=== PATIENT | female | born 1975 | race Caucasian/White ===

== ENCOUNTER → 2022-06-19 | Outpatient (CLI) | payer OTHER | END | disposition home or self-care (01) | LOC: LAB 17:56 | DX: N39.0 Urinary tract infection, site not specified (principal) ==

== ENCOUNTER → 2023-03-16 | Outpatient (CLI) | payer OTHER ==
[~2023-03-16] MED LIST: ACET325; BUPR150T2; BUSP10; CIME400 PO; CITA10S PO; CYCL10 PO; DIPH50 PO; ESTNORT; FLUO20; HYDACE25S PR; HYDACE5 PO; IBUP800; LORA10ER PO; MELA3 PO; META800 PO; METF500; MULVITMIND; OXYACE5T PO; PHENTRAMINE; PRED10 PO; PRED20 PO; RXCYCL10 PO; SERT100; SPIR25 PO; VITB100
[2023-03-17 15:11] LABS: HPV 16 Negative (Negative); HPV 18 Negative (Negative); HPV OTHER HR TYPES Negative (Negative)
== END | disposition home or self-care (01) ==
LOC: LAB SHORT 16:57 → LAB 16:57
PROVIDERS: Obstetrics & Gynecology
DX: Z01.419 Encounter for gynecological examination (general) (routine) without abnormal findings (principal)
CPT/HCPCS: 87624; G0145

== ENCOUNTER → 2024-07-19 | Outpatient (CLI) | payer OTHER ==
[2024-07-19 19:51] LABS: Bacterial Vaginosis PCR Negative (NEGATIVE); Candida glabrata-krusei, PCR NOT DETECTED (NOT DETECT)
[2024-07-19 21:01] LABS: Candida Group, PCR DETECTED (NOT DETECT)
== END ==
LOC: LAB 18:00 → LAB SHORT 18:00
PROVIDERS: Family Medicine
DX: R30.0 Dysuria (principal)
CPT/HCPCS: 87077; 87086; 87186; 87481; 87661; 87801